=== PATIENT | female | born 1995 | race African-American/Black ===

== ENCOUNTER 2017-03-27 22:56 | Observation (INO) | payer MEDICAID ==
[~2017-03-27] VITALS: Ht 162.6 cm; Wt 84.4 kg
[~2017-03-27 22:56] MED LIST: CA C1TAB92 PO; IRON-15 PO; PREN-142 PO; PREN-88 PO
[2017-03-27] MEDS ORDERED: ALBU05 IH (23:11)
[2017-03-27 23:38] LABS: CLARITY URINE CLEAR (CLEAR); COLOR URINE YELLOW (YELLOW); GLUCOSE URINE NEGATIVE (NEGATIVE); KETONES URINE NEGATIVE (NEGATIVE); LEUKOCYTE ESTERASE URINE NEGATIVE (NEGATIVE); NITRITE URINE NEGATIVE (NEGATIVE); OCCULT BLOOD URINE NEGATIVE (NEGATIVE); PROTEIN URINE NEGATIVE (NEGATIVE); UROBILINOGEN URINE 0.2 E.U./dL (0.2-1.0)
== END 2017-03-28 00:37 | disposition home or self-care (01) ==
LOC: L&D 22:56
PROVIDERS: ADMIT Obstetrics & Gynecology; ATTEND Obstetrics & Gynecology
DX: O26.892 Other specified pregnancy related conditions, second trimester (principal); R10.9 Unspecified abdominal pain; Z3A.21 21 weeks gestation of pregnancy
CPT/HCPCS: 81003; 99281; G0378

== ENCOUNTER 2019-08-27 05:45 | Observation (INO) | payer MEDICARE ==
[~2019-08-27] VITALS: Ht 162.6 cm; Wt 88.9 kg
[~2019-08-27 05:45] MED LIST changes: +ALBU05 IH; -CA C1TAB92 PO; -IRON-15 PO; -PREN-142 PO
[2019-08-27 07:39] LABS: CLARITY URINE CLOUDY (CLEAR); COLOR URINE YELLOW (YELLOW); KETONES URINE NEGATIVE (NEGATIVE); LEUKOCYTE ESTERASE URINE 2+ (NEGATIVE); NITRITE URINE NEGATIVE (NEGATIVE); OCCULT BLOOD URINE 1+ (NEGATIVE); PROTEIN URINE NEGATIVE (NEGATIVE); SPECIFIC GRAVITY URINE 1.011 (1.005-1.030)
== END 2019-08-27 09:15 | disposition home or self-care (01) ==
LOC: 8 EST LDRP 05:45
PROVIDERS: ADMIT Obstetrics & Gynecology; ATTEND Obstetrics & Gynecology
DX: O26.892 Other specified pregnancy related conditions, second trimester (principal); R10.30 Lower abdominal pain, unspecified; O62.9 Abnormality of forces of labor, unspecified; Z3A.25 25 weeks gestation of pregnancy
CPT/HCPCS: 81003; 99281; G0378

== ENCOUNTER 2021-06-14 14:40 | Observation (INO) | payer MEDICAID, MEDICARE ==
[~2021-06-14] VITALS: Ht 162.6 cm; Wt 87.1 kg
[2021-06-14] MEDS ORDERED: LACTATED RINGERS 1,000 ML IV SCH (15:45)
[2021-06-14] MEDS ORDERED: LACTATED RINGERS 1,000 ML IV NR (16:00)
[2021-06-14 17:31] LABS: CLARITY URINE CLEAR (CLEAR); COLOR URINE YELLOW (YELLOW); KETONES URINE 2+ (NEGATIVE); LEUKOCYTE ESTERASE URINE 2+ (NEGATIVE); NITRITE URINE POSITIVE (NEGATIVE); OCCULT BLOOD URINE 3+ (NEGATIVE); PH URINE 6.5 (4.5-8.0); PROTEIN URINE TRACE (NEGATIVE); SPECIFIC GRAVITY URINE 1.011 (1.005-1.030); UROBILINOGEN URINE 0.2 E.U./dL (0.2-1.0)
[2021-06-14 17:43] LABS: *COCAINE SCREEN URINE NEGATIVE (NEGATIVE); METHADONE URINE SCREEN NEGATIVE (NEGATIVE)
[2021-06-14 17:44] LABS: *AMPHETAMINES SCREEN URINE NEGATIVE (NEGATIVE); *BARBITURATES SCREEN URINE NEGATIVE (NEGATIVE); *BENZODIAZEPINES SCREEN URINE NEGATIVE (NEGATIVE); OPIATES URINE SCREEN NEGATIVE (NEGATIVE); PHENCYCLIDINE URINE SCREEN NEGATIVE (NEGATIVE)
[2021-06-14 17:52] LABS: CANNABINOID URINE SCREEN PRESUMTIVE POSITIVE (NEGATIVE)
[2021-07-06 13:06] LABS: CANNABINOID CONFIRMATION URINE Positive (.)
== END 2021-06-14 17:34 | disposition still patient (30) ==
LOC: 8 EST A/PP 14:40
PROVIDERS: ADMIT Obstetrics & Gynecology; ATTEND Obstetrics & Gynecology
DX: O21.2 Late vomiting of pregnancy (principal); O26.892 Other specified pregnancy related conditions, second trimester; R10.9 Unspecified abdominal pain; G43.909 Migraine, unspecified, not intractable, without status migrainosus; Z79.899 Other long term (current) drug therapy; Z3A.27 27 weeks gestation of pregnancy
CPT/HCPCS: 59025; 76805; 80305; 80349; 81003; 82731; 87426; 96360; 96361; G0378; G0379

== ENCOUNTER 2021-06-14 18:35 | Emergency (ER) | payer MEDICAID, MEDICARE | END 2021-06-14 22:03 | disposition left against medical advice (07) | LOC: ER 18:35 | DX: R51.9 Headache, unspecified (principal); R05.9 Cough, unspecified; Z53.21 Procedure and treatment not carried out due to patient leaving prior to being seen by health care provider ==